=== PATIENT | female | born 1985 | race Caucasian/White ===

== ENCOUNTER 2016-08-21 03:51 | Emergency (ER) | payer OTHER | END 2016-08-21 07:27 | disposition home or self-care (01) | LOC: FER 03:51 | DX: S61.011A Laceration without foreign body of right thumb without damage to nail, initial encounter (principal); F32.9 Major depressive disorder, single episode, unspecified; F17.210 Nicotine dependence, cigarettes, uncomplicated; Z23 Encounter for immunization; Z88.6 Allergy status to analgesic agent; Z88.8 Allergy status to other drugs, medicaments and biological substances; Z79.899 Other long term (current) drug therapy; W23.1XXA Caught, crushed, jammed, or pinched between stationary objects, initial encounter | CPT/HCPCS: 73140; 90471; 90715 ==

== ENCOUNTER 2020-11-25 14:13 | Inpatient (IN) | payer OTHER ==
[~2020-11-25] VITALS: Ht 160 cm; Wt 68.1 kg
[~2020-11-25 14:13] MED LIST: CLEOCIN HCL300 MG PO; COREG 3.125M3.125 MG PO; IBU600 MG PO; PERCOCET 5-3251 EACH PO; SLEEP AID25 M2 PO
[2020-11-25 18:42] LABS: BASOPHIL 0.4 % (0-2); EOSINOPHIL 0.3 % (0-5); HCT 40.7 % (37.0-47.0); HGB 14.6 g/dl (12.5-16.0); LYMPHOCYTE 36.2 % (15-48); MCH 31.4 pg (25.0-31.0); MCHC 35.9 g/dL (32.0-36.0); MCV 87.5 fL (78.0-100.0); MPV 11.1 fL (6.0-9.5); NEUTROPHIL 54.7 % (41-80); NRBC 0; PLT 333 K/uL (150-400); RBC 4.65 M/uL (4.20-5.40); RDW 12.6 % (11.5-14.0)
[2020-11-25 18:43] LABS: WBC 12.8 K/uL (4.0-10.5)
[2020-11-25 19:01] LABS: BILIRUBIN - TOTAL 1.9 mg/dL (0.2-1.0); BUN/CREAT RATIO (CALC) 26.6 RATIO; CREATININE 0.64 mg/dL (0.51-0.95); GLOBULIN (CALCULATION) 3.5 g/dL; MAGNESIUM 2.1 mg/dL (1.8-2.4); TOTAL PROTEIN 8.5 g/dL (6.4-8.2)
[2020-11-25 19:07] LABS: PRO-BNP 174 pg/mL (<125)
[2020-11-26] MEDS ORDERED: COREG 3.125M3.125 MG PO (00:43)
[2020-11-26 06:15] LABS: BASOPHIL 0.5 % (0-2); EOSINOPHIL 0.6 % (0-5); HGB 11.6 g/dl (12.5-16.0); LYMPHOCYTE 35.8 % (15-48); MCH 31.1 pg (25.0-31.0); MCHC 34.1 g/dL (32.0-36.0); MCV 91.2 fL (78.0-100.0); MONOCYTE 9.4 % (0-12); MPV 10.5 fL (6.0-9.5); NEUTROPHIL 53.5 % (41-80); NRBC 0; PLT 227 K/uL (150-400); RBC 3.73 M/uL (4.20-5.40); RDW 12.7 % (11.5-14.0); WBC 8.2 K/uL (4.0-10.5)
[2020-11-26 06:42] LABS: BUN/CREAT RATIO (CALC) 20.3 RATIO; CREATININE 0.59 mg/dL (0.51-0.95)
[2020-11-26 06:44] LABS: POTASSIUM 2.4 mmol/L (3.5-5.1)
[2020-11-26 11:30] LABS: PHOSPHORUS 4.1 mg/dL (2.6-4.7)
[2020-11-26 14:07] LABS: BILIRUBIN NEGATIVE (NEGATIVE); BLOOD NEGATIVE Ery/uL (NEGATIVE); COLOR YELLOW (YELLOW); GLUCOSE (U) NORMAL (NORMAL); LEUKOCYTES NEGATIVE Leu/uL (NEGATIVE); NITRITE NEGATIVE (NEGATIVE); PROTEIN NEGATIVE (NEGATIVE)
[2020-11-26 14:10] LABS: CLARITY SLIGHTLY HAZY (CLEAR)
--- NOTE | 2020-11-26 16:20 | NUR ---
11/26/20 Ms. Rivera lives at home with her mother. She is independent in the home and community. Ms. Rivera does not have a PCP. She declined a referral to the [facility]. Ms. Rivera reports a history of depression. She denies suicidal ideations, intentions, or attempts. Ms. Rivera was educated to [facility] in [facility], a comprehensive clinic with PCP, case management, social work and psychiatry.
[2020-11-26 17:52] LABS: IRON % SATURATION 28.5 %SAT (20-50)
[2020-11-27 06:12] LABS: BASOPHIL 0.5 % (0-2); HCT 31.1 % (37.0-47.0); HGB 10.9 g/dl (12.5-16.0); LYMPHOCYTE 48.8 % (15-48); MCH 31.6 pg (25.0-31.0); MCV 90.1 fL (78.0-100.0); MONOCYTE 8.4 % (0-12); MPV 10.6 fL (6.0-9.5); NRBC 0; PLT 192 K/uL (150-400); RBC 3.45 M/uL (4.20-5.40); RDW 12.4 % (11.5-14.0); WBC 7.4 K/uL (4.0-10.5)
[2020-11-27 06:44] LABS: BUN/CREAT RATIO (CALC) 8.9 RATIO; CREATININE 0.45 mg/dL (0.51-0.95); MAGNESIUM 1.6 mg/dL (1.8-2.4); POTASSIUM 2.7 mmol/L (3.5-5.1)
[2020-11-27] MEDS ORDERED: PANTOPRAZOLE SO40 MG PO (13:07)
[2020-11-27] MEDS ORDERED: POTASSIUM CHLO20 ME2 PO (13:07)
[2020-11-27] MEDS ORDERED: MAG-OXIDE 400M400 MG PO (13:24)
== END 2020-11-27 15:39 | disposition home or self-care (01) | DRG 392 ==
LOC: FER 14:13 → FTCU 21:36 → FMS 21:36
PROVIDERS: Emergency Medicine; Internal Medicine; Nurse Practitioner; ADMIT Internal Medicine
DX: K52.9 Noninfective gastroenteritis and colitis, unspecified (principal); N17.9 Acute kidney failure, unspecified; E86.0 Dehydration; E87.6 Hypokalemia; Z20.822 Contact with and (suspected) exposure to COVID-19; D64.9 Anemia, unspecified; E83.42 Hypomagnesemia; Z88.6 Allergy status to analgesic agent; Z88.8 Allergy status to other drugs, medicaments and biological substances; Z88.1 Allergy status to other antibiotic agents; Z79.899 Other long term (current) drug therapy; Z90.710 Acquired absence of both cervix and uterus; Z98.890 Other specified postprocedural states
CPT/HCPCS: 36415; 71045; 80048; 80053; 81003; 82607; 82746; 83540; 83550; 83735; 83880; 84100; 84145; 84484; 85025; 93005; C9113; J0780; J1650; J2550; J3475; J3480; J7030; Q9967; U0002

== ENCOUNTER 2021-01-03 19:19 | Inpatient (IN) | payer OTHER ==
[~2021-01-03] VITALS: Ht 160 cm; Wt 68.7 kg
[~2021-01-03 19:19] MED LIST changes: +MAG-OXIDE 400M400 MG PO; +PANTOPRAZOLE SO40 MG PO; +POTASSIUM CHLO20 ME2 PO
[2021-01-03 20:29] LABS: BASOPHIL 0.4 % (0-2); EOSINOPHIL 0.1 % (0-5); HCT 39.3 % (37.0-47.0); HGB 13.3 g/dl (12.5-16.0); LYMPHOCYTE 23.1 % (15-48); MCH 30.6 pg (25.0-31.0); MCHC 33.8 g/dL (32.0-36.0); MCV 90.3 fL (78.0-100.0); MONOCYTE 7.1 % (0-12); MPV 9.9 fL (6.0-9.5); NEUTROPHIL 68.9 % (41-80); NRBC 0; PLT 341 K/uL (150-400); RBC 4.35 M/uL (4.20-5.40); RDW 12.7 % (11.5-14.0); WBC 10.4 K/uL (4.0-10.5)
[2021-01-03 20:50] LABS: ALBUMIN 4.9 g/dL (3.4-5.0); BILIRUBIN - TOTAL 1.2 mg/dL (0.2-1.0); BUN/CREAT RATIO (CALC) 29.5 RATIO; CREATININE 0.61 mg/dL (0.51-0.95); GLOBULIN (CALCULATION) 3.5 g/dL; POTASSIUM 3.9 mmol/L (3.5-5.1); TOTAL PROTEIN 8.4 g/dL (6.4-8.2)
[2021-01-03 21:43] LABS: CORONAVIRUS 2019 SARS-COV-2 NEGATIVE (NEGATIVE); INFLUENZA A NAA NEGATIVE (NEGATIVE)
[2021-01-04 04:03] LABS: BILIRUBIN 1+ mg/dL (NEGATIVE); BLOOD 1+ Ery/uL (NEGATIVE); CLARITY CLEAR (CLEAR); COLOR YELLOW (YELLOW); GLUCOSE (U) NORMAL (NORMAL); LEUKOCYTES NEGATIVE Leu/uL (NEGATIVE); NITRITE NEGATIVE (NEGATIVE); PROTEIN 1+ mg/dL (NEGATIVE); SPECIFIC GRAVITY 1.025 (1.001-1.030); pH 6.5 (5.0-9.0)
[2021-01-04 04:16] LABS: BACTERIA 1+; MUCOUS TRACE; URINARY RBC RARE; URINARY WBC RARE
[2021-01-04] MEDS ORDERED: AMOXICILLIN500 MG PO (05:30)
[2021-01-04] MEDS ORDERED: BUSPAR5 MG PO (05:31)
[2021-01-04] MEDS ORDERED: REGLAN10 MG PO (05:31)
[2021-01-04] MEDS ORDERED: TRAZODONE 50MG50 MG PO (05:32)
[2021-01-04] MEDS ORDERED: EFFEXOR-XR 75 M75 MG PO (05:33)
[2021-01-04 05:44] LABS: BASOPHIL 0.5 % (0-2); EOSINOPHIL 0.2 % (0-5); HCT 34.4 % (37.0-47.0); HGB 11.6 g/dl (12.5-16.0); LYMPHOCYTE 25.3 % (15-48); MCH 30.4 pg (25.0-31.0); MCHC 33.7 g/dL (32.0-36.0); MCV 90.1 fL (78.0-100.0); MONOCYTE 8.9 % (0-12); MPV 9.6 fL (6.0-9.5); NEUTROPHIL 64.8 % (41-80); NRBC 0; PLT 254 K/uL (150-400); RBC 3.82 M/uL (4.20-5.40); RDW 12.7 % (11.5-14.0); WBC 9.3 K/uL (4.0-10.5)
[2021-01-04 05:58] LABS: ALBUMIN 3.9 g/dL (3.4-5.0); BILIRUBIN - TOTAL 0.9 mg/dL (0.2-1.0); BUN/CREAT RATIO (CALC) 31.7 RATIO; CREATININE 0.63 mg/dL (0.51-0.95); GLOBULIN (CALCULATION) 2.5 g/dL; MAGNESIUM 1.7 mg/dL (1.8-2.4); PHOSPHORUS 4.5 mg/dL (2.6-4.7); POTASSIUM 3.1 mmol/L (3.5-5.1)
[2021-01-04 06:06] LABS: TOTAL PROTEIN 6.4 g/dL (6.4-8.2)
[2021-01-04 08:56] LABS: HCG (URINE) SCREEN NEGATIVE (NEGATIVE)
[2021-01-04 08:57] LABS: AMPHETAMINES NEGATIVE (NEGATIVE); BARBITURATES NEGATIVE (NEGATIVE); ECSTASY (MDMA) NEGATIVE (NEGATIVE); MARIJUANA (THC) POSITIVE (NEGATIVE); METHADONE NEGATIVE (NEGATIVE); OPIATES POSITIVE (NEGATIVE); OXYCODONE NEGATIVE (NEGATIVE)
[2021-01-05 05:33] LABS: BASOPHIL 0.6 % (0-2); EOSINOPHIL 0.4 % (0-5); HCT 33.2 % (37.0-47.0); HGB 10.8 g/dl (12.5-16.0); LYMPHOCYTE 38.1 % (15-48); MCH 30.3 pg (25.0-31.0); MCHC 32.5 g/dL (32.0-36.0); MONOCYTE 8.8 % (0-12); MPV 9.2 fL (6.0-9.5); NRBC 0; PLT 217 K/uL (150-400); RBC 3.57 M/uL (4.20-5.40); RDW 12.4 % (11.5-14.0); WBC 8.3 K/uL (4.0-10.5)
[2021-01-05 06:11] LABS: ALBUMIN 3.4 g/dL (3.4-5.0); CREATININE 0.52 mg/dL (0.51-0.95); GLOBULIN (CALCULATION) 2.5 g/dL; MAGNESIUM 1.8 mg/dL (1.8-2.4); POTASSIUM 2.6 mmol/L (3.5-5.1); TOTAL PROTEIN 5.9 g/dL (6.4-8.2)
[2021-01-05 18:56] LABS: RETICULOCYTE COUNT 1.2 % (1.0-2.0)
[2021-01-05 19:04] LABS: IRON % SATURATION 38.1 %SAT (20-50)
[2021-01-05 19:36] LABS: FOLIC ACID (SERUM) 18.9 ng/mL (8.6-58.9)
[2021-01-06 06:16] LABS: BASOPHIL 0.6 % (0-2); EOSINOPHIL 0.7 % (0-5); HCT 31.4 % (37.0-47.0); HGB 10.5 g/dl (12.5-16.0); LYMPHOCYTE 43.5 % (15-48); MCH 30.3 pg (25.0-31.0); MCHC 33.4 g/dL (32.0-36.0); MCV 90.5 fL (78.0-100.0); MONOCYTE 8.8 % (0-12); MPV 10.1 fL (6.0-9.5); NEUTROPHIL 46.2 % (41-80); NRBC 0; PLT 223 K/uL (150-400); RBC 3.47 M/uL (4.20-5.40); WBC 8.2 K/uL (4.0-10.5)
[2021-01-06 06:27] LABS: BUN/CREAT RATIO (CALC) 17.9 RATIO; CREATININE 0.56 mg/dL (0.51-0.95); MAGNESIUM 1.8 mg/dL (1.8-2.4); POTASSIUM 3.1 mmol/L (3.5-5.1)
[2021-01-07 07:08] LABS: BASOPHIL 0.7 % (0-2); EOSINOPHIL 1.7 % (0-5); HCT 29.9 % (37.0-47.0); HGB 10.3 g/dl (12.5-16.0); LYMPHOCYTE 45.9 % (15-48); MCH 30.7 pg (25.0-31.0); MCHC 34.4 g/dL (32.0-36.0); MPV 9.8 fL (6.0-9.5); NEUTROPHIL 42.5 % (41-80); NRBC 0; PLT 206 K/uL (150-400); RBC 3.36 M/uL (4.20-5.40); RDW 11.8 % (11.5-14.0); WBC 5.5 K/uL (4.0-10.5)
[2021-01-07 07:38] LABS: BUN/CREAT RATIO (CALC) 10.9 RATIO; CREATININE 0.55 mg/dL (0.51-0.95); MAGNESIUM 1.6 mg/dL (1.8-2.4); POTASSIUM 3.1 mmol/L (3.5-5.1)
[2021-01-07] MEDS ORDERED: CARAFATE1 GM PO (16:03)
[2021-01-07] MEDS ORDERED: PROTONIX 40MG T40 MG PO (16:03)
[2021-01-07] MEDS ORDERED: NORCO 5-325 TA1 EACH PO (17:10)
[2021-01-07] MEDS ORDERED: PHENERGAN25 M1 PO (17:10)
== END 2021-01-07 17:05 | disposition home or self-care (01) | DRG 392 ==
LOC: FER 19:19 → FMS 21:57
PROVIDERS: Internal Medicine; Nurse Practitioner; Nurse Practitioner Family; Student in an Organized Health Care Education/Training Program; ADMIT Allergy & Immunology Allergy
PROC: 0DB68ZX Excision of Stomach, Via Natural or Artificial Opening Endoscopic, Diagnostic (ICD-10-PCS; 2021-01-06)
PROC: 0DB98ZX Excision of Duodenum, Via Natural or Artificial Opening Endoscopic, Diagnostic (ICD-10-PCS; principal; 2021-01-06 11:15)
PROC: 0DB78ZX Excision of Stomach, Pylorus, Via Natural or Artificial Opening Endoscopic, Diagnostic (ICD-10-PCS; 2021-01-06 11:15)
DX: K31.84 Gastroparesis (principal); K29.70 Gastritis, unspecified, without bleeding; E80.6 Other disorders of bilirubin metabolism; F17.210 Nicotine dependence, cigarettes, uncomplicated; Z20.822 Contact with and (suspected) exposure to COVID-19; K44.9 Diaphragmatic hernia without obstruction or gangrene; I50.9 Heart failure, unspecified; R11.15 Cyclical vomiting syndrome unrelated to migraine; Z90.710 Acquired absence of both cervix and uterus; Z98.890 Other specified postprocedural states; Z88.8 Allergy status to other drugs, medicaments and biological substances; Z88.1 Allergy status to other antibiotic agents; Z88.6 Allergy status to analgesic agent; Z79.899 Other long term (current) drug therapy
CPT/HCPCS: 36415; 76705; 78264; 80048; 80053; 80305; 81001; 82607; 82746; 83540; 83550; 83605; 83735; 83880; 84100; 84703; 85025; 88305; 88342; A9541; C9113; J0780; J1170; J2270; J2550; J2704; J2765; J3420; J3475; J3480; J7030; J7120; U0002

== ENCOUNTER 2021-02-14 12:38 | Emergency (ER) | payer OTHER ==
[~2021-02-14 12:38] MED LIST changes: +AMOXICILLIN500 MG PO; +BUSPAR5 MG PO; +CARAFATE1 GM PO; +EFFEXOR-XR 75 M75 MG PO; +NORCO 5-325 TA1 EACH PO; +PHENERGAN25 M1 PO; +PROTONIX 40MG T40 MG PO; +REGLAN10 MG PO; +TRAZODONE 50MG50 MG PO
[2021-02-14 13:18] LABS: BASOPHIL 0.4 % (0-2); EOSINOPHIL 0.1 % (0-5); HCT 38.6 % (37.0-47.0); LYMPHOCYTE 17.9 % (15-48); MCHC 33.7 g/dL (32.0-36.0); MCV 89.1 fL (78.0-100.0); MONOCYTE 6.9 % (0-12); MPV 10.2 fL (6.0-9.5); NEUTROPHIL 74.3 % (41-80); NRBC 0; PLT 321 K/uL (150-400); RBC 4.33 M/uL (4.20-5.40); RDW 12.8 % (11.5-14.0); WBC 10.4 K/uL (4.0-10.5)
[2021-02-14 13:28] LABS: ALBUMIN 4.3 g/dL (3.4-5.0); BILIRUBIN - TOTAL 0.8 mg/dL (0.2-1.0); BUN/CREAT RATIO (CALC) 27.8 RATIO; CREATININE 0.54 mg/dL (0.51-0.95); GLOBULIN (CALCULATION) 3.6 g/dL; POTASSIUM 3.2 mmol/L (3.5-5.1); TOTAL PROTEIN 7.9 g/dL (6.4-8.2)
[2021-02-14] MEDS ORDERED: NORCO 5-325 TA1 EACH PO (16:47)
[2021-02-14] MEDS ORDERED: PHENERGAN25 M1 PO (16:47)
== END 2021-02-14 17:06 | disposition home or self-care (01) ==
LOC: FER 12:38
PROVIDERS: Nurse Practitioner Family
DX: K31.84 Gastroparesis (principal); I50.9 Heart failure, unspecified; Z20.822 Contact with and (suspected) exposure to COVID-19; Z88.6 Allergy status to analgesic agent; Z88.1 Allergy status to other antibiotic agents; Z88.8 Allergy status to other drugs, medicaments and biological substances
CPT/HCPCS: 36415; 80053; 85025; J1170; J2550; J2765; J7030; Q9967; U0002

== ENCOUNTER 2021-02-16 10:38 | Emergency (ER) | payer OTHER ==
[2021-02-16 11:33] LABS: BASOPHIL 0.4 % (0-2); EOSINOPHIL 0 % (0-5); HCT 41.9 % (37.0-47.0); LYMPHOCYTE 23.4 % (15-48); MCH 29.9 pg (25.0-31.0); MCHC 33.4 g/dL (32.0-36.0); MCV 89.3 fL (78.0-100.0); MONOCYTE 6.7 % (0-12); MPV 10.3 fL (6.0-9.5); NEUTROPHIL 69.3 % (41-80); NRBC 0; PLT 304 K/uL (150-400); RBC 4.69 M/uL (4.20-5.40); RDW 12.9 % (11.5-14.0); WBC 10.3 K/uL (4.0-10.5)
[2021-02-16 11:45] LABS: ALBUMIN 4.7 g/dL (3.4-5.0); BILIRUBIN - TOTAL 1.3 mg/dL (0.2-1.0); CREATININE 0.6 mg/dL (0.51-0.95); GLOBULIN (CALCULATION) 3.7 g/dL; POTASSIUM 2.6 mmol/L (3.5-5.1); TOTAL PROTEIN 8.4 g/dL (6.4-8.2)
[2021-02-16 16:11] LABS: BILIRUBIN 1+ mg/dL (NEGATIVE); BLOOD NEGATIVE Ery/uL (NEGATIVE); CLARITY CLEAR (CLEAR); COLOR YELLOW (YELLOW); GLUCOSE (U) NORMAL (NORMAL); LEUKOCYTES NEGATIVE Leu/uL (NEGATIVE); NITRITE NEGATIVE (NEGATIVE); PROTEIN 1+ mg/dL (NEGATIVE); SPECIFIC GRAVITY 1.015 (1.001-1.030); pH 8.5 (5.0-9.0)
[2021-02-16 16:14] LABS: MARIJUANA (THC) POSITIVE (NEGATIVE)
[2021-02-16 16:15] LABS: AMPHETAMINES NEGATIVE (NEGATIVE); BARBITURATES NEGATIVE (NEGATIVE); ECSTASY (MDMA) NEGATIVE (NEGATIVE); METHADONE NEGATIVE (NEGATIVE); OPIATES POSITIVE (NEGATIVE); OXYCODONE NEGATIVE (NEGATIVE)
[2021-02-16 16:22] LABS: BACTERIA TRACE; MUCOUS LARGE
[2021-02-16 17:18] LABS: BUN/CREAT RATIO (CALC) 33.3 RATIO; CREATININE 0.51 mg/dL (0.51-0.95); POTASSIUM 3.2 mmol/L (3.5-5.1)
[2021-02-16] MEDS ORDERED: PHENERGAN25 M1 PO (17:24)
[2021-02-16] MEDS ORDERED: K-DUR20 MEQ PO (17:24)
== END 2021-02-16 18:40 | disposition home or self-care (01) ==
LOC: FER 10:38
PROVIDERS: Internal Medicine
DX: K31.84 Gastroparesis (principal); K52.9 Noninfective gastroenteritis and colitis, unspecified; E87.6 Hypokalemia; I50.9 Heart failure, unspecified; F17.210 Nicotine dependence, cigarettes, uncomplicated; Z98.890 Other specified postprocedural states; Z90.710 Acquired absence of both cervix and uterus
CPT/HCPCS: 36415; 80048; 80053; 80305; 81001; 83690; 83880; 85025; 96372; J0780; J1170; J2270; J2550; J3475; J3480; J7120

== ENCOUNTER 2021-03-14 15:49 | Emergency (ER) | payer OTHER ==
[~2021-03-14 15:49] MED LIST changes: +K-DUR20 MEQ PO
[2021-03-14 17:54] LABS: BASOPHIL 0.8 % (0-2); BILIRUBIN 1+ mg/dL (NEGATIVE); BLOOD NEGATIVE Ery/uL (NEGATIVE); CLARITY CLEAR (CLEAR); COLOR YELLOW (YELLOW); EOSINOPHIL 1.5 % (0-5); GLUCOSE (U) NORMAL (NORMAL); HCT 43.9 % (37.0-47.0); HGB 14.2 g/dl (12.5-16.0); LEUKOCYTES NEGATIVE Leu/uL (NEGATIVE); LYMPHOCYTE 34.9 % (15-48); MCH 29.7 pg (25.0-31.0); MCHC 32.3 g/dL (32.0-36.0); MCV 91.8 fL (78.0-100.0); MONOCYTE 8.8 % (0-12); MPV 9.9 fL (6.0-9.5); NEUTROPHIL 53.7 % (41-80); NITRITE NEGATIVE (NEGATIVE); NRBC 0; PLT 343 K/uL (150-400); PROTEIN TRACE (LOW) mg/dL (NEGATIVE); RBC 4.78 M/uL (4.20-5.40); RDW 13.2 % (11.5-14.0); SPECIFIC GRAVITY 1.025 (1.001-1.030); WBC 7.9 K/uL (4.0-10.5); pH 6.5 (5.0-9.0)
[2021-03-14 18:29] LABS: ALBUMIN 4.1 g/dL (3.4-5.0); BILIRUBIN - TOTAL 0.6 mg/dL (0.2-1.0); CREATININE 0.63 mg/dL (0.51-0.95); GLOBULIN (CALCULATION) 3.2 g/dL; TOTAL PROTEIN 7.3 g/dL (6.4-8.2)
== END 2021-03-14 21:12 | disposition home or self-care (01) ==
LOC: FER 15:49
PROVIDERS: Emergency Medicine
DX: K31.84 Gastroparesis (principal); I50.9 Heart failure, unspecified; F17.200 Nicotine dependence, unspecified, uncomplicated; Z88.1 Allergy status to other antibiotic agents; Z88.6 Allergy status to analgesic agent; Z88.8 Allergy status to other drugs, medicaments and biological substances
CPT/HCPCS: 36415; 80053; 81003; 82150; 83690; 85025; J0780; J1200; J1630

== ENCOUNTER 2021-04-06 14:29 | Inpatient (IN) | payer OTHER ==
[~2021-04-06] VITALS: Ht 160 cm; Wt 74.6 kg
[2021-04-06 15:24] LABS: BASOPHIL 0.4 % (0-2); EOSINOPHIL 0.1 % (0-5); HGB 13.6 g/dl (12.5-16.0); LYMPHOCYTE 15.4 % (15-48); MCV 88.1 fL (78.0-100.0); MONOCYTE 6.5 % (0-12); MPV 9.6 fL (6.0-9.5); NEUTROPHIL 76.6 % (41-80); NRBC 0; PLT 361 K/uL (150-400); RBC 4.54 M/uL (4.20-5.40); RDW 13.3 % (11.5-14.0); WBC 14.4 K/uL (4.0-10.5)
[2021-04-06 15:54] LABS: LACTIC ACID 2.2 mmol/L (0.4-1.9)
[2021-04-06 15:57] LABS: ALBUMIN 4.3 g/dL (3.4-5.0); BILIRUBIN - TOTAL 0.5 mg/dL (0.2-1.0); BUN/CREAT RATIO (CALC) 18.4 RATIO; CREATININE 0.49 mg/dL (0.51-0.95); GLOBULIN (CALCULATION) 3.6 g/dL; POTASSIUM 3.6 mmol/L (3.5-5.1); TOTAL PROTEIN 7.9 g/dL (6.4-8.2)
[2021-04-07 06:32] LABS: BASOPHIL 0.6 % (0-2); EOSINOPHIL 1.1 % (0-5); HCT 34.4 % (37.0-47.0); HGB 11.2 g/dl (12.5-16.0); MCH 29.6 pg (25.0-31.0); MCHC 32.6 g/dL (32.0-36.0); MCV 90.8 fL (78.0-100.0); MONOCYTE 8.2 % (0-12); NEUTROPHIL 51.7 % (41-80); NRBC 0; PLT 270 K/uL (150-400); RBC 3.79 M/uL (4.20-5.40); RDW 13.3 % (11.5-14.0); WBC 8.5 K/uL (4.0-10.5)
[2021-04-07 06:52] LABS: ALBUMIN 3.4 g/dL (3.4-5.0); BILIRUBIN - TOTAL 0.6 mg/dL (0.2-1.0); BUN/CREAT RATIO (CALC) 12.5 RATIO; CREATININE 0.56 mg/dL (0.51-0.95); GLOBULIN (CALCULATION) 2.9 g/dL; POTASSIUM 3.3 mmol/L (3.5-5.1); TOTAL PROTEIN 6.3 g/dL (6.4-8.2)
[2021-04-07 12:01] LABS: BILIRUBIN NEGATIVE (NEGATIVE); BLOOD TRACE-INTACT Ery/uL (NEGATIVE); CLARITY CLEAR (CLEAR); COLOR YELLOW (YELLOW); GLUCOSE (U) NORMAL (NORMAL); LEUKOCYTES NEGATIVE Leu/uL (NEGATIVE); NITRITE NEGATIVE (NEGATIVE); PROTEIN NEGATIVE (NEGATIVE); SPECIFIC GRAVITY 1.025 (1.001-1.030); pH 6.5 (5.0-9.0)
[2021-04-07 12:03] LABS: AMPHETAMINES NEGATIVE (NEGATIVE); BARBITURATES NEGATIVE (NEGATIVE); ECSTASY (MDMA) NEGATIVE (NEGATIVE); MARIJUANA (THC) POSITIVE (NEGATIVE); METHADONE NEGATIVE (NEGATIVE); OPIATES POSITIVE (NEGATIVE); OXYCODONE NEGATIVE (NEGATIVE)
[2021-04-07 12:15] LABS: BACTERIA TRACE; SQUAMOUS EPITHELIAL CELLS 20-50
--- NOTE | 2021-04-07 16:53 | NUR ---
MET WITH PT REGARDING ANY DISCHARGE NEEDS. PT. STATED THAT SHE DID NOT HAVE ANY NEEDS SHE WAS AWARE OF. DISCUSSED WITH HER THE POS DRUG SCREEN. PT. STATED THAT SHE HAD BEEN CLEAN FROM [employer] FOR 5 YEARS AND THAT SHE HASN'T SMOKED MARIJUANA FOR TWO MONTHS. PT. DENIED USING RECREATIONAL DRUGS. SHE STATED THAT SHE IS ON AN ANTIDEPRESSANT MEDICATION AND THAT HELPS HER. SHE DOES NOT WISH TO HAVE ANY COUNSELING. SHE STATES THAT SHE HAS A GOOD SUPPORT SYSTEM AND THAT SHE LIVES WITH HER MOTHER. SHE STATES THAT HER MOTHER IS A VERY GOOD SUPPORT FOR HER. PT. HAS A 17 YEAR OLD DAUGHTER THAT RESIDES IN [place] WITH AN AUNT. THE PT STATES THAT SHE LOST CUSTODY OF HER DAUGHTER WHEN THE CHILD WAS 5 YEARS OLD. SHE STATES THAT THE DAUGHTER IS PLANNING ON COMING BACK HOME WHEN SHE IS 18.
[2021-04-08 06:19] LABS: BASOPHIL 0.5 % (0-2); EOSINOPHIL 1.6 % (0-5); HCT 32.9 % (37.0-47.0); HGB 11.1 g/dl (12.5-16.0); LYMPHOCYTE 41.6 % (15-48); MCHC 33.7 g/dL (32.0-36.0); MCV 88.9 fL (78.0-100.0); MONOCYTE 9.8 % (0-12); MPV 9.6 fL (6.0-9.5); NEUTROPHIL 46.3 % (41-80); NRBC 0; PLT 233 K/uL (150-400); RDW 12.9 % (11.5-14.0); WBC 5.5 K/uL (4.0-10.5)
[2021-04-08 07:00] LABS: BUN/CREAT RATIO (CALC) 9.1 RATIO; CREATININE 0.55 mg/dL (0.51-0.95); POTASSIUM 3.6 mmol/L (3.5-5.1)
== END 2021-04-08 16:25 | disposition home or self-care (01) | DRG 392 ==
LOC: FER 14:29 → FMS 19:10
PROVIDERS: Emergency Medicine; Internal Medicine; Nurse Practitioner; ADMIT Hospitalist
DX: K31.84 Gastroparesis (principal); E87.6 Hypokalemia; F32.A Depression, unspecified; Z20.822 Contact with and (suspected) exposure to COVID-19; I11.0 Hypertensive heart disease with heart failure; I50.9 Heart failure, unspecified; I36.1 Nonrheumatic tricuspid (valve) insufficiency; F41.9 Anxiety disorder, unspecified; Z90.710 Acquired absence of both cervix and uterus; Z98.890 Other specified postprocedural states; Z88.1 Allergy status to other antibiotic agents; Z88.8 Allergy status to other drugs, medicaments and biological substances; Z79.899 Other long term (current) drug therapy
CPT/HCPCS: 36415; 80048; 80053; 80305; 81001; 83605; 83690; 85025; 93005; 94010; 94760; C9113; J0780; J1170; J1650; J1790; J2550; J7030; J7120; Q0169; U0002

== ENCOUNTER 2021-07-13 12:51 | Emergency (ER) | payer OTHER ==
[~2021-07-13 12:51] MED LIST changes: +REGLAN5 MG PO
[2021-07-13 13:56] LABS: BASOPHIL 0.3 % (0-2); EOSINOPHIL 0.1 % (0-5); HCT 41.1 % (37.0-47.0); LYMPHOCYTE 18.3 % (15-48); MCH 29.9 pg (25.0-31.0); MCHC 34.1 g/dL (32.0-36.0); MCV 87.6 fL (78.0-100.0); MONOCYTE 6.1 % (0-12); MPV 9.1 fL (6.0-9.5); NEUTROPHIL 74.9 % (41-80); NRBC 0; PLT 380 K/uL (150-400); RBC 4.69 M/uL (4.20-5.40); RDW 13.2 % (11.5-14.0); WBC 10.1 K/uL (4.0-10.5)
[2021-07-13 14:22] LABS: ALBUMIN 4.5 g/dL (3.4-5.0); BILIRUBIN - TOTAL 0.9 mg/dL (0.2-1.0); BUN/CREAT RATIO (CALC) 29.4 RATIO; CREATININE 0.51 mg/dL (0.51-0.95); GLOBULIN (CALCULATION) 3.6 g/dL; POTASSIUM 2.9 mmol/L (3.5-5.1); TOTAL PROTEIN 8.1 g/dL (6.4-8.2)
[2021-07-13] MEDS ORDERED: NORCO 5-325 TA1 EACH PO (16:44)
== END 2021-07-13 16:45 | disposition home or self-care (01) ==
LOC: FER 12:51
PROVIDERS: Physician Assistant
DX: K31.84 Gastroparesis (principal); F17.200 Nicotine dependence, unspecified, uncomplicated; Z88.1 Allergy status to other antibiotic agents; Z88.5 Allergy status to narcotic agent; Z88.8 Allergy status to other drugs, medicaments and biological substances
CPT/HCPCS: 36415; 80053; 83690; 85025; J1170; J1200; J2550; J2765; J7030

== ENCOUNTER 2021-10-17 16:13 | Inpatient (IN) | payer OTHER ==
[~2021-10-17] VITALS: Ht 162.6 cm; Wt 66.0 kg
[2021-10-17 17:50] LABS: BASOPHIL 0.4 % (0-2); EOSINOPHIL 0.6 % (0-5); HCT 41.3 % (37.0-47.0); HGB 14.6 g/dl (12.5-16.0); LYMPHOCYTE 13.1 % (15-48); MCH 29.8 pg (25.0-31.0); MCHC 35.4 g/dL (32.0-36.0); MCV 84.3 fL (78.0-100.0); MONOCYTE 6.8 % (0-12); MPV 9.4 fL (6.0-9.5); NEUTROPHIL 78.5 % (41-80); NRBC 0; PLT 384 K/uL (150-400); RDW 13.2 % (11.5-14.0); WBC 15.9 K/uL (4.0-10.5)
[2021-10-17 18:07] LABS: ALBUMIN 4.7 g/dL (3.4-5.0); BUN/CREAT RATIO (CALC) 29.8 RATIO; CREATININE 0.57 mg/dL (0.51-0.95); GLOBULIN (CALCULATION) 3.4 g/dL; POTASSIUM 2.5 mmol/L (3.5-5.1); TOTAL PROTEIN 8.1 g/dL (6.4-8.2)
[2021-10-18 02:01] LABS: BILIRUBIN NEGATIVE (NEGATIVE); BLOOD TRACE-LYSED Ery/uL (NEGATIVE); CLARITY CLEAR (CLEAR); COLOR YELLOW (YELLOW); GLUCOSE (U) NORMAL (NORMAL); LEUKOCYTES NEGATIVE Leu/uL (NEGATIVE); NITRITE NEGATIVE (NEGATIVE); PROTEIN 2+ mg/dL (NEGATIVE); SPECIFIC GRAVITY <=1.005 (1.001-1.030); UROBILINOGEN 0.2 mg/dL (0.2-1.0); pH 8.5 (5.0-9.0)
[2021-10-18 02:09] LABS: AMORPHOUS URATES CRYSTALS TRACE; BACTERIA TRACE
[2021-10-18 02:42] LABS: HCG (URINE) SCREEN NEGATIVE (NEGATIVE)
[2021-10-18 03:22] LABS: BASOPHIL 0.3 % (0-2); EOSINOPHIL 0 % (0-5); HCT 40.8 % (37.0-47.0); HGB 13.9 g/dl (12.5-16.0); LYMPHOCYTE 16.5 % (15-48); MCH 29.6 pg (25.0-31.0); MCHC 34.1 g/dL (32.0-36.0); MCV 86.8 fL (78.0-100.0); MONOCYTE 8.3 % (0-12); MPV 9.6 fL (6.0-9.5); NEUTROPHIL 74.4 % (41-80); NRBC 0; PLT 381 K/uL (150-400); RDW 13.4 % (11.5-14.0); WBC 17.3 K/uL (4.0-10.5)
[2021-10-18 03:38] LABS: BUN/CREAT RATIO (CALC) 26.5 RATIO; CREATININE 0.68 mg/dL (0.51-0.95); MAGNESIUM 1.7 mg/dL (1.8-2.4); POTASSIUM 3.1 mmol/L (3.5-5.1)
[2021-10-19 03:54] LABS: BASOPHIL 0.4 % (0-2); EOSINOPHIL 0.9 % (0-5); HCT 34.1 % (37.0-47.0); HGB 11.2 g/dl (12.5-16.0); LYMPHOCYTE 33.2 % (15-48); MCH 29.6 pg (25.0-31.0); MCHC 32.8 g/dL (32.0-36.0); MONOCYTE 7.2 % (0-12); MPV 9.6 fL (6.0-9.5); NEUTROPHIL 57.9 % (41-80); NRBC 0; PLT 248 K/uL (150-400); RBC 3.79 M/uL (4.20-5.40); RDW 13.6 % (11.5-14.0); WBC 10.4 K/uL (4.0-10.5)
[2021-10-19 04:12] LABS: BUN/CREAT RATIO (CALC) 25.5 RATIO; CREATININE 0.55 mg/dL (0.51-0.95); POTASSIUM 2.7 mmol/L (3.5-5.1)
[2021-10-19 12:49] LABS: BUN/CREAT RATIO (CALC) 16.9 RATIO; CREATININE 0.59 mg/dL (0.51-0.95); POTASSIUM 3.8 mmol/L (3.5-5.1)
--- NOTE | 2021-10-19 13:30 | NUR ---
MIDLINE ORDER PLACED, WENT TO BEDSIDE AND EXPLAINED PROCEDURE TO PATIENT, PATIENT AGREED TO MIDLINE PLACEMENT. USING STERILE PROCEDURE I ATTEMPTED TO INSERT A MIDLINE IN PATIENTS LEFT UPPER BASILIC VEIN. I WAS ABLE TO ACCESS THE VEIN WITH THE NEEDLE, BLOOD RETURN NOTED, ABLE TO GUIDE WIRE IN APPROX 3 INCHES AND THEN RESISTANCE MET. I RETRACTED BOTH NEEDLE AND GUIDE WIRE COMPLETELY, AND ATTMPTED AGAIN. SAME ISSUE EACH ATTEMPT, 4 ATTMEPTS TOTAL. BLOOD RETURN NOTED EACH TIME, BUT UNABLE TO GUIDE IN WIRE. DR HERNANDEZ NOTIFIED OF UNSUCCESSFUL ATTMEPT. I WAS ABLE TO OBTIAN A #22 GAUGE IV IN PATIENTS RIGHT WRIST.
[2021-10-22] MEDS ORDERED: DILAUDID2 MG PO (11:48)
[2021-10-22] MEDS ORDERED: PHENERGAN25 M1 PO (11:48)
== END 2021-10-22 13:10 | disposition home or self-care (01) | DRG 392 ==
LOC: FER 16:13 → FTCU 20:50
PROVIDERS: Family Medicine; Nurse Practitioner Acute Care; Physician Assistant; ADMIT Internal Medicine
DX: K31.84 Gastroparesis (principal); R65.10 Systemic inflammatory response syndrome (SIRS) of non-infectious origin without acute organ dysfunction; E87.6 Hypokalemia; Z20.822 Contact with and (suspected) exposure to COVID-19; F17.210 Nicotine dependence, cigarettes, uncomplicated; G47.00 Insomnia, unspecified; F32.A Depression, unspecified; R73.9 Hyperglycemia, unspecified; I10 Essential (primary) hypertension; E83.42 Hypomagnesemia; F41.9 Anxiety disorder, unspecified; Z90.710 Acquired absence of both cervix and uterus; Z98.890 Other specified postprocedural states; Z82.5 Family history of asthma and other chronic lower respiratory diseases
CPT/HCPCS: 36415; 80048; 80053; 81001; 83036; 83690; 83735; 84703; 85025; 87088; 96372; C9113; J1170; J1364; J2060; J2270; J2550; J2765; J3475; J3480; Q0169; Q9967; U0002